=== PATIENT | male | born 1960 | race Caucasian/White ===

== ENCOUNTER 2018-11-28 10:09 | Outpatient (REF) | payer OTHER, SELFPAY ==
[2018-11-28 20:46] LABS: Calculated LDL 109 mg/dL; Cholesterol 177 mg/dL (50-200); Glucose 83 mg/dL (70-100); HDL Cholesterol 49 mg/dL (40-60); Triglyceride 98 mg/dL (30-150)
[2018-11-30 09:20] LABS: PSA, Screening 6.6 ng/ml (0-3.5)
== END 2018-11-28 10:29 ==
LOC: NCHCN 10:09
PROVIDERS: PCP Internal Medicine; Visit Provider Nurse Practitioner Family
DX: Z00.00 Encounter for general adult medical examination without abnormal findings (principal); Z13.220 Encounter for screening for lipoid disorders; Z12.5 Encounter for screening for malignant neoplasm of prostate; R97.20 Elevated prostate specific antigen [PSA]; Z13.1 Encounter for screening for diabetes mellitus
CPT/HCPCS: 80061; 82947; 83721; 84153

== ENCOUNTER 2019-03-19 17:36 | Outpatient (REF) | payer OTHER, SELFPAY ==
[2019-03-25 10:35] LABS: PSA, Diagnostic 5.4 ng/mL (0.0-3.5)
== END 2019-03-19 17:56 ==
LOC: NCHCO 17:36
PROVIDERS: PCP Internal Medicine; Visit Provider Nurse Practitioner Family
DX: R97.20 Elevated prostate specific antigen [PSA] (principal)
CPT/HCPCS: 84153

== ENCOUNTER 2023-10-03 09:20 | Outpatient (REF) | payer OTHER, SELFPAY ==
[2023-10-03 19:22] LABS: ALT 34 U/L (16-63); AST 22 U/L (15-37); Albumin 3.9 g/dL (3.4-5.0); Alkaline Phosphatase 78 U/L (46-116); Anion Gap 8.2 mmol/L (3-11); BUN 15 mg/dL (7-18); Bilirubin, Total 0.7 mg/dL (0.2-1.0); CO2 26.8 mmol/L (21.0-32.0); CREATININE 1.2 mg/dL (0.70-1.30); Calcium 9.1 mg/dL (8.5-10.1); Calculated LDL 105 mg/dL (<100); Chloride 101 mmol/L (98-107); Cholesterol 184 mg/dL (<200); Estimated GFR 67.95 (mL/min/1.73m2); Glucose 94 mg/dL (74-106); HDL Cholesterol 51 mg/dL (40-60); Potassium 4.1 mmol/L (3.5-5.1); Sodium 136 mmol/L (136-145); Total Protein 7.8 g/dL (6.4-8.2); Triglyceride 141 mg/dL (<150)
== END 2023-10-03 09:21 | disposition home or self-care (01) ==
LOC: NCHCN 09:20
PROVIDERS: PCP Internal Medicine; Visit Provider Nurse Practitioner Family
DX: Z13.220 Encounter for screening for lipoid disorders (principal); R63.5 Abnormal weight gain
CPT/HCPCS: 80053; 80061